=== PATIENT | male | born 1945 | race Caucasian/White ===

== ENCOUNTER 2018-06-29 17:29 | Observation (INO) | payer MEDICARE ==
[~2018-06-29] VITALS: Ht 177.8 cm; Wt 97.6 kg
[~2018-06-29 17:29] MED LIST: AMOXICILLIN 8751 TAB PO; ANTIVERT 25MG25 MG PO; ASPIRIN 81M81 MG/TA2 PO; BYDUREON P2 MG/0.65; CALCIUM 600MG+D1 TAB PO; CLARITIN 1010 MG/TAB PO; FLEXERIL 1010 MG/TAB PO; FLOMAX 0.40.4 MG/CAP PO; GLUCOPHAGE1000 MG PO; GLUCOPHAGE500 MG/TAB PO; LIPITOR20 MG PO; NEURONTIN300 MG/CAP PO; NOVOLIN N100 U/ML SQ; PHENERGAN 25 TA25 MG PO; TENORMIN 2525 MG/TAB PO; ZESTRIL 10MG10 MG PO
[2018-06-29 18:44] LABS: BASO % 0.2 % (0.0-2.0); EOS # 0.1 (0.0-0.7); EOS % 2.3 % (0-4.0); GRAN # 3.6 (1.4-6.5); GRAN % 59.5 % (42.2-75.2); HEMATOCRIT 37.8 % (42.0-52.0); HEMOGLOBIN 12.4 g/dl (13.5-18.0); LYMPH # 1.9 (1.2-3.4); LYMPH % 31.2 % (20.0-51.0); MEAN CELL VOLUME 96 fl (80.0-100.0); MEAN CORPUSCULAR HEMOGLOBIN 32 pg (27.0-31.0); MEAN CORPUSCULAR HGB CONC 33 g/dl (33.0-37.0); MEAN PLATELET VOLUME 10.2 fl (7.4-10.4); MONO # 0.4 (0.1-0.6); MONO % 6.6 % (1.7-9.3); PLATELET COUNT 179 K/mm3 (130-400); RED BLOOD COUNT 3.92 M/mm3 (4.20-5.60); REDCELL DISTRIBUTION WIDTH-CV 12.7 % (11.5-14.5)
[2018-06-29 18:49] LABS: COLLECTION METHOD CLEAN CATCH
[2018-06-29 18:54] LABS: PH 5 (5-8); SQUAMOUS EPITHELIAL None Seen /hpf; URINE APPEARANCE Clear; URINE BACTERIA None Seen /hpf; URINE BILIRUBIN Negative (NEGATIVE); URINE BLOOD Negative (NEGATIVE); URINE COLOR Straw; URINE GLUCOSE Negative (NEGATIVE); URINE KETONE Negative (NEGATIVE); URINE LEUKOCYTE ESTERASE Negative (NEGATIVE); URINE NITRATE Negative (NEGATIVE); URINE PROTEIN(semi-quant) Negative (NEGATIVE); URINE RBC None Seen /hpf; URINE UROBILINOGEN Negative (NEGATIVE)
[2018-06-29 18:56] LABS: ALANINE AMINOTRANSFERASE 30 U/L (21-72); ALBUMIN 3.6 gm/dL (3.5-5.0); ALKALINE PHOSPHATASE 73 U/L (50-136); ANION GAP 8 mmol/L (7-16); AST,SGOT 23 U/L (15-37); BILIRUBIN,TOTAL 0.3 mg/dL (0.0-1.0); BLOOD UREA NITROGEN 17 mg/dL (9-20); CALCIUM 9.1 mg/dL (8.4-10.2); CARBON DIOXIDE 28 mmol/L (22-30); CHLORIDE 102 mmol/L (98-107); CREATININE, serum 0.83 mg/dL (0.66-1.25); GLUCOSE 155 mg/dL (74-106); POTASSIUM 4.4 mmol/L (3.4-5.0); SODIUM 138 mmol/L (137-145); TOTAL PROTEIN 6.7 gm/dL (6.4-8.2)
[2018-06-29 18:57] LABS: C-REACTIVE PROTEIN < 0.5 mg/dL (0.0-0.9)
[2018-06-29] MEDS ORDERED: NEURONTIN300 MG/CAP PO (18:57)
[2018-06-29] MEDS ORDERED: B-D SAFETY GLID1 DE1 (19:00)
[2018-06-29 23:38] VITALS: BP 115/53; PULSE 54; TEMP 97.8
[2018-06-30] VITALS (7 sets, daily range): BP systolic 103–178; BP diastolic 36–92; PULSE 45–65; TEMP 98.2–98.7
[2018-06-30] MEDS ORDERED: BYETTA 10M600 MCG/SY SQ (00:12)
[2018-06-30 07:02] LABS: BASO % 0.2 % (0.0-2.0); EOS # 0.2 (0.0-0.7); EOS % 3.5 % (0-4.0); GRAN # 1.7 (1.4-6.5); GRAN % 37.8 % (42.2-75.2); HEMOGLOBIN 10.8 g/dl (13.5-18.0); LYMPH # 2.1 (1.2-3.4); LYMPH % 45.7 % (20.0-51.0); MEAN CELL VOLUME 99 fl (80.0-100.0); MEAN CORPUSCULAR HEMOGLOBIN 32 pg (27.0-31.0); MEAN CORPUSCULAR HGB CONC 32 g/dl (33.0-37.0); MONO # 0.6 (0.1-0.6); MONO % 12.6 % (1.7-9.3); PLATELET COUNT 157 K/mm3 (130-400); RED BLOOD COUNT 3.41 M/mm3 (4.20-5.60)
[2018-06-30 07:09] LABS: CALCIUM 8.1 mg/dL (8.4-10.2); CHOLESTEROL RISK RATIO 2.2; CREATININE, serum 0.85 mg/dL (0.66-1.25); POTASSIUM 4.2 mmol/L (3.4-5.0)
[2018-06-30 07:10] LABS: HEMATOCRIT 33.9 % (42.0-52.0)
[2018-07-01 03:36] VITALS: BP 121/55; PULSE 53; TEMP 98.1
[2018-07-01 07:37] VITALS: BP 124/65; PULSE 58; TEMP 98.3
[2018-07-01] MEDS ORDERED: VALIUM 5MG T5 MG/TAB PO (10:57)
== END 2018-07-01 13:43 | disposition home or self-care (01) ==
LOC: COL.ER 17:29 → MEDICAL 22:01
PROVIDERS: Family Medicine; Nurse Practitioner Family
DX: R42 Dizziness and giddiness (principal); R51 Headache; E11.42 Type 2 diabetes mellitus with diabetic polyneuropathy; I10 Essential (primary) hypertension; J32.2 Chronic ethmoidal sinusitis; J32.3 Chronic sphenoidal sinusitis; Z79.84 Long term (current) use of oral hypoglycemic drugs; Z79.82 Long term (current) use of aspirin; Z85.46 Personal history of malignant neoplasm of prostate; Z86.79 Personal history of other diseases of the circulatory system
CPT/HCPCS: A9585; G0378; J1650; J1815; J2270; J2405; J7030; Q9967